=== PATIENT | male | born 1955 | race Caucasian/White ===

== ENCOUNTER → 2025-07-29 13:02 | Outpatient (BNVA) | payer MEDICARE, BC, SELFPAY | PROVIDERS: Visit Provider Nurse Practitioner Gerontology | DX: N20.0 Calculus of kidney (principal); E11.9 Type 2 diabetes mellitus without complications; Z96.0 Presence of urogenital implants; Z85.46 Personal history of malignant neoplasm of prostate; Z80.42 Family history of malignant neoplasm of prostate | CPT/HCPCS: 99205; 81002 ==

== ENCOUNTER → 2025-08-22 14:50 | Outpatient (BNVA) | payer MEDICARE, BC, SELFPAY | PROVIDERS: Visit Provider Nurse Practitioner Gerontology | DX: N20.0 Calculus of kidney (principal); Z85.46 Personal history of malignant neoplasm of prostate; Z80.42 Family history of malignant neoplasm of prostate | CPT/HCPCS: 99213 ==